=== PATIENT | female | born 1985 | race Hispanic/Latino ===

== ENCOUNTER 2024-10-02 13:34 | Emergency (ER) | payer OTHER ==
[~2024-10-02] VITALS: Ht 157.5 cm; Wt 89.8 kg
[2024-10-02 16:07] LABS: BASOPHILS # (AUTO) 0.03 K/uL (0.00-0.20); BASOPHILS % (AUTO) 0.4 % (0.0-5.0); EOSINOPHILS # (AUTO) 0.06 K/uL (0.00-0.70); EOSINOPHILS % (AUTO) 0.8 % (0.0-8.0); HEMATOCRIT 41.2 % (36-48); IMMATURE GRANULOCYTE ABSOLUTE 0.02 K/uL (0-1); LYMPHOCYTES # (AUTO) 2.3 K/uL (1.0-4.8); LYMPHOCYTES % (AUTO) 32.7 % (21.0-51.0); MEAN CORPUSCULAR HEMOGLOBIN 29.8 pg (27.0-33.0); MEAN CORPUSCULAR HGB CONC 34.7 g/dL (32.0-36.0); MEAN CORPUSCULAR VOLUME 85.8 fL (79-99); MONOCYTES # (AUTO) 0.4 K/uL (0.1-1.0); MONOCYTES % (AUTO) 5.6 % (3.0-13.0); NEUTROPHILS # (AUTO) 4.3 K/uL (1.8-7.7); NEUTROPHILS % (AUTO) 60.2 % (40.0-77.0); PLATELET COUNT (AUTO) 336 K/uL (130-400); RED CELL DISTRIBUTION WIDTH 12.4 % (11.0-15.5); WHITE BLOOD COUNT (AUTO) 7.2 K/uL (4.8-10.8)
--- NOTE | 2024-10-02 16:07 | HMCIMG ---
Exam Type: CERV SPINE 2-3VWS Clinical Information: Pain Comparison: None FINDINGS: C1 through the top of T1 are seen on the lateral view. The prevertebral soft tissues are normal. The vertebral bodies are well-aligned and without fracture. The disc spaces are normal as is the distance between the arch of C1 and the dens. The spinolaminar line is smooth and the spinous process tips intact. The AP view of the cervical spine is unremarkable. IMPRESSION: NEGATIVE CERVICAL SPINE SERIES.
[2024-10-02 16:19] LABS: CREATININE 0.6 mg/dL (0.5-1.0)
[2024-10-02] MEDS ORDERED: 0.9% NACL 500ML IV.SOLN 500 ML IV ONE (17:30)
[2024-10-02 17:50] LABS: ADD UA MICROSCOPIC YES; APPEARANCE,URINE CLEAR (CLEAR); BILIRUBIN,URINE NEGATIVE (NEGATIVE); COLOR,URINE LIGHT-YELLOW (YELLOW); GLUCOSE, URINE (UA) >=1000 mg/dL (NEGATIVE); KETONES,URINE 10 mg/dL (NEGATIVE); LEUKOCYTE ESTERASE ,URINE 250 Leu/uL (NEGATIVE); NITRATE,URINE NEGATIVE (NEGATIVE); OCCULT BLOOD,URINE NEGATIVE (NEGATIVE); PROTEIN,URINE 30 mg/dL (NEGATIVE); UROBILINOGEN,URINE 0.2 mg/dL (0.2-1.0)
[2024-10-02 17:52] LABS: BACTERIA,URINE RARE /HPF (None Seen); MUCUS,URINE RARE LPF (None Seen); SQUAMOUS EPITHELIAL CELL,UR FEW /HPF (0-2)
[2024-10-02] MEDS: cefTRIAXone 1G VIAL IVPB ONE (18:14)
[2024-10-02] MEDS: 0.9% NACL 500ML IV.SOLN 500 ML IV ONE (18:16)
[2024-10-02] MEDS ORDERED: CEPH500T PO (18:41)
--- NOTE | 2024-10-02 18:41 | ERN ---
General Chief Complaint: Anxiety/Panic Attack Stated Complaint: FACE NUMBNESS X 4 DAYS Time Seen by MD: 14:43 Time Seen by Midlevel: 14:43 Source: patient History of Present Illness Initial Comments 39-year-old presents to the emergency department due to feeling anxious. Patient reports lip numbness, and neck pain. Denies any headaches, chest pain, difficulty breathing, abnormal behavioral, or further associated symptoms. She states work has been more stressful lately and has been feeling a little more anxious. PMHx DM Allergies: Coded Allergies: No Known Drug Allergies (Unverified Allergy, Unknown, 10/02/24) Home Meds Active Scripts Cephalexin (Cephalexin) 500 Mg Tablet, 1 TAB PO BID for 7 Days, #14 TAB 0 Refills Prov:LIS DAVIS 10/02/24 Past Medical History Past Medical History: Diabetes-Type II Past Surgical History: Cholecystectomy ROS Dictation Constitutional: Negative for fever,chills, and weight loss Eyes: Negative for injury, pain,redness, and discharge ENT: Positive for lip numbness Negative for injury,pain or swelling Cardiovascular: Negative for chest pain, palpitations, and edema Respiratory: Negative for shortness of breath, cough, and wheezing, Abdomen/GI: Negative for abdominal pain, nausea, vomiting, diarrhea, and constipation Back: Negative for injury and pain : Negative for painful urination, bleeding or discharge MS/Extremity: Positive for neck pain Negative for injury and deformity Skin: Negative for rash, and discoloration Neuro: Negative for headache, weakness, numbness, tingling, and seizure Psych: Negative for suicide ideation, homicidal ideation, and hallucinations Physical Exam Physical Exam Dictation General: awake, alert, no acute distress Head/Face: Normocephalic, atraumatic Eyes: PERRL, EOMI, normal conjunctiva ENT: oral cavity clear, oral mucosa moist Neck: Supple, normal range of motion Cardiovascular: RRR, normal S1/S2 Respiratory: CTAB, no respiratory distress, no rales or wheezes Abdomen: Soft, non-tender, non-distended, normal bowel sounds, no guarding or rebound. Skin: Warm, dry, normal turgor, no rash MS/Extremity: Pulses equal, no cyanosis, neurovascular intact, FROM Neuro: COAx4, GCS 15, strength 5/5, CN 2-12 intact, normal cerebellar exam, no rmal gait Psych: Normal behavior, mood, and affect normal Results Laboratory and Microbiology Lab and Micro Result Laboratory Tests Test 10/02/24 15:53 10/02/24 17:36 White Blood Count 7.2 K/uL (4.8-10.8) Red Blood Count 4.80 MIL/uL (4.00-5.50) Hemoglobin 14.3 g/dL (12.0-16.0) Hematocrit 41.2 % (36-48) Mean Corpuscular Volume 85.8 fL (79-99) Mean Corpuscular Hemoglobin 29.8 pg (27.0-33.0) Mean Corpuscular Hemoglobin Concent 34.7 g/dL (32.0-36.0) Red Cell Distribution Width 12.4 % (11.0-15.5) Platelet Count 336 K/uL (130-400) Mean Platelet Volume 10.0 fL (7.5-10.5) Immature Granulocyte % (Auto) 0.3 % (0-1) Neutrophils (%) (Auto) 60.2 % (40.0-77.0) Lymphocytes (%) (Auto) 32.7 % (21.0-51.0) Monocytes (%) (Auto) 5.6 % (3.0-13.0) Eosinophils (%) (Auto) 0.8 % (0.0-8.0) Basophils (%) (Auto) 0.4 % (0.0-5.0) Neutrophils # (Auto) 4.3 K/uL (1.8-7.7) Lymphocytes # (Auto) 2.3 K/uL (1.0-4.8) Monocytes # (Auto) 0.4 K/uL (0.1-1.0) Eosinophils # (Auto) 0.06 K/uL (0.00-0.70) Basophils # (Auto) 0.03 K/uL (0.00-0.20) Absolute Immature Granulocyte (auto 0.02 K/uL (0-1) Nucleated Red Blood Cells 0.0 % (0.0-0.19) Sodium Level 132 mmol/L (136-145) L Potassium Level 4.0 mmol/L (3.5-5.1) Chloride Level 98 mmol/L (101-111) L Carbon Dioxide Level 25 mmol/L (21-32) Blood Urea Nitrogen 5 mg/dL (7-18) L Creatinine 0.6 mg/dL (0.5-1.0) Glomerular Filtration Rate Calc 118 mL/min (>90) Random Glucose 247 mg/dL (70-105) H Total Calcium 8.6 mg/dL (8.5-10.1) Urine Color LIGHT-YELLOW (YELLOW) Urine Appearance CLEAR (CLEAR) Urine pH 5.0 (5.0-8.0) Urine Specific [place] 1.039 (1.001-1.031) Urine Protein 30 mg/dL (NEGATIVE) H Urine Glucose (UA) >=1000 mg/dL (NEGATIVE) H Urine Ketones 10 mg/dL (NEGATIVE) H Urine Occult Blood NEGATIVE (NEGATIVE) Urine Nitrate NEGATIVE (NEGATIVE) Urine Bilirubin NEGATIVE mg/dL (NEGATIVE) Urine Urobilinogen 0.2 mg/dL (0.2-1.0) Urine Leukocyte Esterase 250 Kate/uL (NEGATIVE) H Urine RBC 6-10 /HPF (0-1) H Urine WBC 11-25 /HPF (0-1) H Urine Squamous Epithelial Cells FEW /HPF (0-2) Urine Bacteria RARE /HPF (None Seen) Urine HCG, Qualitative NEGATIVE (NEGATIVE) Labs Reviewed?: Yes MDM MDM: Differential diagnosis: Neck sprain, anxiety, electrolyte abnormality Rationale: 39-year-old presents to the emergency department due to feeling anxious. Patient reports lip numbness, and neck pain. Denies any headaches, chest pain, difficulty breathing, abnormal behavioral, or further associated symptoms. She states work has been more stressful lately and has been feeling a little more anxious. PMHx DM Per physical examination patient is in no acute distress, nonlabored breathing, NIH score of 0, no cervical spine tenderness. Labs obtained, WBC within normal limits, mild dehydration based on chemistry, UA indicates urinary tract infection. Patient received IV fluids and Rocephin in the ED. Antibiotics prescribed for outpatient treatment. Patient educated on findings and diagnosis. Advised to follow up with PCP. Return to the emergency department if any worsening symptoms. The patient verbalized understanding, stable for discharge. There are no social concerns with this patient. I independently interpreted the test that were performed, results were reviewed by me and considered findings on radiology if ordered. Medical management and examination interpretation discussions were had by me with other qualified healthcare professionals as indicated for the patient's care. ED Course Orders Procedure Category Date Status Time Cbc With Differential LAB 10/02/24 Complete 15:05 Basic Metabolic Panel LAB 10/02/24 Complete 15:05 Cerv Spine 2-3vws RAD 10/02/24 Resulted 15:05 ,Urine Test LAB 10/02/24 Complete 15:05 0.9% Nacl 500ml PHA 10/02/24 Complete Iv.Soln (Ns 500ml 17:30 Urinalysis Profile LAB 10/02/24 Complete 17:21 0.9% Nacl 500ml PHA 10/02/24 Complete Iv.Soln (Ns 500ml 18:00 Culture Urine JEANETTE 10/02/24 In Process 17:51 Ceftriaxone 1g Vial PHA 10/02/24 Complete (Rocephine 1g Inj) 18:30 Current Medications Medications (Trade) Dose Ordered Sig/Jonathan Route PRN Reason Start Time Stop Time Status Last Admin Dose Admin Ceftriaxone Sodium (ROCEphine 1G INJ) 1 gm ONCE ONCE IVPB 10/02/24 18:30 10/02/24 18:31 DC 10/02/24 18:14 Sodium Chloride 500 ml @ 0 mls/hr ONCE ONCE IV 10/02/24 17:30 10/02/24 17:27 DC Sodium Chloride 500 ml @ 0 mls/hr ONCE ONCE IV 10/02/24 18:00 10/02/24 18:05 DC 10/02/24 18:16 Vital Signs Date Time Temp Pulse Resp B/P (MAP) Pulse Ox O2 Delivery O2 Flow Rate FiO2 10/02/24 18:48 98.2 68 16 150/82 98 Room Air* 0 21 10/02/24 17:42 98.1 68 16 150/90 98 Room Air* 0 21 10/02/24 14:54 98.1 69 20 150/94 99 Room Air 0 DX & DISP Disposition: Discharge Departure Impression: Primary Impression: Urinary tract infection Condition: Stable Scripts Cephalexin (Cephalexin) 500 Mg Tablet 1 TAB PO BID for 7 Days, #14 TAB 0 Refills Prov: LIS DAVIS 10/02/24 Additional Instructions: Discharge home. Rest. Follow up with primary care in 24 hours. Return to the ER for any acute changes or worsening symptoms. If any medications were prescribed take as directed. Okay to continue home medications unless otherwise discussed during your visit in the emergency room today. Patient was also advised to follow-up with primary care physician in 1 to 2 days for continued monitoring. Referrals: SELF,REFERRAL (PCP) I performed the substantive portion of the visit. I have reviewed and personally made and approve the management plan that is documented in the notes by myself or the ORLY. I acknowledge full responsibility for the patient's management plan. LIS DAVIS Oct 02, 2024 18:41 SINTIA BARNHART DO Oct 03, 2024 07:29
[2024-10-02 18:48] VITALS: BP 150/82; PULSE 68; RESP 16; TEMP 98.3; O2SAT 98
== END 2024-10-02 17:27 | disposition left against medical advice (07) ==
LOC: EDH 13:34
DX: N39.0 Urinary tract infection, site not specified (principal); E11.9 Type 2 diabetes mellitus without complications; F41.0 Panic disorder [episodic paroxysmal anxiety]; Z90.49 Acquired absence of other specified parts of digestive tract
CPT/HCPCS: 99284; 96374; 80048; 85025; 87086; 81001; 81025; 36415; 72040; J7040; J0696